=== PATIENT | female | born 1945 | race Two or more races ===

== ENCOUNTER 2022-07-05 14:30 | Emergency (ER) | payer MEDICAID ==
[~2022-07-05] VITALS: Ht 162.6 cm; Wt 76.0 kg
[2022-07-05] MEDS ORDERED: HYDROCODONE/ACETAMINOPHEN 5/325MG TABLET PO STA (17:47)
[2022-07-05] MEDS ORDERED: LIDOCAINE HCL 1% 20ML VIAL (Pyxis) INJ INFIL ONE (19:00)
[2022-07-05] MEDS ORDERED: LIDOCAINE HCL 1% 20ML VIAL (Pyxis) INJ INFIL NR (20:35)
[2022-07-05] MEDS ORDERED: PROPOFOL 200MG/20ML VIAL IV ONE (20:45)
[2022-07-05] MEDS ORDERED: FENTANYL CITRATE/PF 50MCG/ML 2ML VIAL IV ONE (21:15)
[2022-07-05] MEDS ORDERED: SODIUM CHLORIDE 0.9% 1,000 ML IV ONE (22:00)
[2022-07-05 23:45] LABS: BASOPHILS % 0.4 % (0.0-2.0); EOSINOPHILS % 3.8 % (0.0-5.0); HEMATOCRIT. 34.6 % (36.0-48.0); HEMOGLOBIN. 11.4 g/dL (12.0-16.0); INR 1.1; LYMPHOCYTES % 27.4 % (20.0-50.0); MEAN CORPUSCULAR HEMOGLOBIN 26.2 pg (28.0-32.0); MEAN CORPUSCULAR VOLUME 79.8 fL (81.0-99.0); MEAN PLATELET VOLUME 8.8 fl (7.4-10.4); MONOCYTES % 9.4 % (2.0-8.0); PLATELET 144 x1000/uL (130-400); PROTHROMBIN TIME 11.5 sec (9.6-11.0); RED BLOOD CELL COUNT 4.34 mill/uL (4.2-5.4); RED CELL DISTRIBUTION WIDTH 14.4 % (11.6-14.6)
[2022-07-06 00:11] LABS: CHLORIDE 105 mEq/L (98-107)
[2022-07-06 01:35] VITALS: BP 155/79
== END 2022-07-06 02:15 | disposition home or self-care (01) ==
LOC: ER 14:30
DX: S43.085A Other dislocation of left shoulder joint, initial encounter (principal); I71.20 Thoracic aortic aneurysm, without rupture, unspecified; E87.6 Hypokalemia; I10 Essential (primary) hypertension; H54.8 Legal blindness, as defined in USA; Z86.011 Personal history of benign neoplasm of the brain; Z98.890 Other specified postprocedural states; W01.0XXA Fall on same level from slipping, tripping and stumbling without subsequent striking against object, initial encounter; Y93.89 Activity, other specified; Y92.018 Other place in single-family (private) house as the place of occurrence of the external cause
CPT/HCPCS: 23650; 36415; 71045; 71250; 73030; 73060; 80053; 83880; 84484; 85025; 85610; 96361; 96374; 99284; J2704; J3010; J3490; J7030; L3670